=== PATIENT | female | born 1950 | race Caucasian/White ===

== ENCOUNTER 2017-11-06 09:10 | Day surgery (SDC) | payer MEDICARE, BC ==
[~2017-11-06 09:10] MED LIST: Dexamethasone 4 MG/ML 5 ML MDV ONE; Midazolam 1 MG/ML 2 ML SDV ONE; Ondansetron 4 MG/2 ML SDV ONE; Propofol 200 MG/20 ML SDV ONE; Rocuronium 10 MG/ML 10 ML Syringe ONE; Scopolamine 1.5 MG Transdermal Patch TRDERM PRN; diphenhydrAMINE 50 MG/ML SDV ONE; fentaNYL 250 MCG/5 ML SDV ONE
[2017-11-06] MEDS ORDERED: Fluorescein 5 ML Vial ONE (09:34)
--- NOTE | 2017-11-06 10:10 | PCM.PREANE ---
Preanesthetic Assessment - Anesthesia/Transfusion/Family Hx Anesthesia History: Prior Anesthesia Without Reaction Family History of Anesthesia Reaction: No Transfusion History: No Prior Transfusion(s) Intubation History: Unknown - Review of Systems General: No Symptoms Pulmonary: No Symptoms Cardiovascular: No Symptoms Gastrointestinal: No Symptoms Neurological: No Symptoms Other: Reports: None - Physical Assessment O2 Sat by Pulse Oximetry: 95 Respiratory Rate: 16 Vital Signs: Last Vital Signs Temp 36.4 C 11/06/17 09:30 Pulse 80 11/06/17 09:30 Resp 16 11/06/17 09:30 BP 167/82 H 11/06/17 09:30 Pulse Ox 95 11/06/17 09:30 Height: 1.65 m Weight: 93.894 kg ASA Class: 2 Mental Status: Alert & Oriented x3 Airway Class: Mallampati = 2 Dentition: Reports: Normal Dentition Thyro-Mental Finger Breadths: 2 Mouth Opening Finger Breadths: 3 ROM/Head Extension: Full Lungs: Clear to Auscultation, Normal Respiratory Effort Cardiovascular: Regular Rate, Regular Rhythm - Allergies Allergies/Adverse Reactions: Allergies Allergy/AdvReac Type Severity Reaction Status Date / Time No Known Allergies Allergy Verified 11/06/17 09:37 - Blood Blood Available: No - Anesthesia Plan Pre-Op Medication Ordered: None - Acknowledgements Anesthesia Type Planned: General Anesthesia Pt an Appropriate Candidate for the Planned Anesthesia: Yes Alternatives and Risks of Anesthesia Discussed w Pt/Guardian: Yes Pt/Guardian Understands and Agrees with Anesthesia Plan: Yes PreAnesthesia Questionnaire Other HEENT History: wears glasses Cardiovascular History: Reports: Hypertension Gastrointestinal History: Reports: Other (See Below) Other Gastrointestinal History: occasional heartburn- takes [employer] History: Reports: Ectopic Musculoskeletal History: Reports: Other (See Below) Other Musculoskeletal History: hx of spinal stenosis Neurological History: Reports: Other (See Below) Other Neuro History: hx of spinal stenosis Endocrine/Metabolic History: Reports: Obesity/BMI 30+ - Past Surgical History Head Surgeries/Procedures: Reports: None GI Surgical History: Reports: Cholecystectomy, Colonoscopy Female Surgical History: Reports: Other (See Below) Other Female Surgeries/Procedures: removal of Ectopic Neurological Surgical History: Reports: Spinal Fusion Other Neurological Surgeries/Procedures: L5-S1- has rods in back Musculoskeletal Surgical History: Reports: Other (See Below) Other Musculoskeletal Surgeries/Procedures:: spinal fision L5-S1 - has 2 rods in back - SUBSTANCE USE Smoking Status *Q: Never Smoker Recreational Drug Use History: No - HOME MEDS Home Medications: Home Meds Cholecalciferol (Vitamin D3) [Vitamin D3] 2,000 unit PO DAILY 11/02/17 [History] Hydrochlorothiazide 25 mg PO DAILY 11/02/17 [History] - CURRENT (IN HOUSE) MEDS Current Meds: Current Medications Scopolamine (Transderm-Scop) 1.5 mg TRDERM Q72H PRN PRN Reason: Nausea/Vomiting Last Admin: 11/06/17 10:03 Dose: 1.5 mg Discontinued Medications Dexamethasone (Dexamethasone) Confirm Administered Dose 20 mg .ROUTE .STK-MED ONE Stop: 11/06/17 09:05 Diphenhydramine HCl (Benadryl) Confirm Administered Dose 50 mg .ROUTE .STK-MED ONE Stop: 11/06/17 09:05 Fentanyl (Sublimaze) Confirm Administered Dose 250 mcg .ROUTE .STK-MED ONE Stop: 11/06/17 09:06 Fluorescein Sodium (Ak-Fluor) Confirm Administered Dose 5 ml .ROUTE .STK-MED ONE Stop: 11/06/17 09:35 Midazolam HCl (Versed 1 Mg/Ml) Confirm Administered Dose 2 mg .ROUTE .STK-MED ONE Stop: 11/06/17 09:06 Ondansetron HCl (Zofran) Confirm Administered Dose 4 mg .ROUTE .STK-MED ONE Stop: 11/06/17 09:05 Propofol (Diprivan 20 Ml) Confirm Administered Dose 200 mg .ROUTE .STK-MED ONE Stop: 11/06/17 09:06 Rocuronium [place] (Zemuron) Confirm Administered Dose 100 mg .ROUTE .STK-MED ONE Stop: 11/06/17 09:05
[2017-11-06] MEDS ORDERED: ceFAZolin 2 GM in Premix Bag 1 BAG IV ONE (10:29)
[2017-11-06] MEDS ORDERED: Furosemide 40 MG/4 ML VIAL ONE (11:37)
[2017-11-06] MEDS ORDERED: Mineral Oil/Petrolatum Ophth Oint 3.5 GM Tube ONE (11:37)
[2017-11-06] MEDS ORDERED: Glycopyrrolate 0.2 MG/ML SDV ONE (11:53)
[2017-11-06] MEDS ORDERED: fentaNYL 100 MCG/2 ML SDV ONE ×2 (12:32→13:13)
[2017-11-06] MEDS ORDERED: ePHEDrine 50 MG/ML SDV ONE (12:51)
[2017-11-06] MEDS ORDERED: Ketorolac 30 MG/ML SDV ONE (13:05)
[2017-11-06] MEDS ORDERED: Acetaminophen/oxyCODONE 325-5 MG Tab PO PRN (14:07)
[2017-11-06] MEDS ORDERED: Ketorolac 30 MG/ML SDV IVPUSH ONE (14:07)
[2017-11-06] MEDS ORDERED: Morphine 2 MG/ML Syringe IVPUSH PRN (14:07)
[2017-11-06] MEDS ORDERED: Promethazine 25 MG/ML SDV IM PRN (14:07)
[2017-11-06] MEDS ORDERED: Ondansetron 4 MG/2 ML SDV IVPUSH PRN (14:07)
[2017-11-06] MEDS ORDERED: Morphine 4 MG/ML Syringe IVPUSH PRN (14:07)
--- NOTE | 2017-11-06 14:07 | PCM.OPNOTE ---
- General Post-Op/Procedure Note Date of Surgery/Procedure: 11/06/17 Operative Procedure(s): TVH, anterior and posterior repair, vaginal vault suspension, cystoscopy Findings: 4th degree cystocele, 3rd degree uterine prolapse, 3rd degree enterocele, 3rd degree rectocele, on cystoscopy, no evidence of trauma to the bladder mucosa, copious flow of bright green urine from bilateral ureteral orifices. Pre Op Diagnosis: incomplete uterovaginal prolapse Post-Op Diagnosis: Same Anesthesia Technique: General ET Tube Primary Surgeon: Charlene Bush Secondary Surgeon: Amena Jansen Pathology: uterus, vaginal mucosa Fluid Replacement, Intraop: 2,300 Output, Urine Amount: 300 EBL in mLs: 200 Complications: None Known Condition: Good
--- NOTE | 2017-11-06 16:41 | PCM48HPAN ---
Post Anesthesia Note - EVALUATION WITHIN 48HRS OF ANESTHETIC Vital Signs in Normal Range: Yes Patient Participated in Evaluation: Yes Respiratory Function Stable: Yes Airway Patent: Yes Cardiovascular Function Stable: Yes Hydration Status Stable: Yes Pain Control Satisfactory: Yes Nausea and Vomiting Control Satisfactory: Yes Mental Status Recovered: Yes Resp Rate: 13
[2017-11-06] MEDS: Ketorolac 30 MG/ML SDV IVPUSH SCH ×2 (16:54→20:29)
--- NOTE | 2017-11-06 20:14 | OR ---
SURGEON: Charlene Bush M.D. DATE OF PROCEDURE: 11/06/2017 PREOPERATIVE DIAGNOSIS: Incomplete uterovaginal prolapse. POSTOPERATIVE DIAGNOSIS: Incomplete uterovaginal prolapse. PROCEDURE PERFORMED: Total vaginal hysterectomy with anterior and posterior colporrhaphy, vaginal vault suspension to the uterosacral ligaments, and cystoscopy. ANESTHESIA: General endotracheal. FLUIDS: 2300 mL crystalloid. ESTIMATED BLOOD LOSS: 200 mL. URINE OUTPUT: 300 mL. FINDINGS: Fourth degree cystocele, third to fourth degree uterine prolapse, third-degree rectocele with enterocele, and on cystoscopy there was no evidence of any trauma to the bladder mucosa. There was copious flow of bright green urine from bilateral ureteral orifices. COMPLICATIONS: None known. DISPOSITION: Stable to recovery. BRIEF HISTORY: This is a 67-year-old female, who presents with an incomplete uterovaginal prolapse. She was counseled regarding options. This prolapse is fairly severe, it is not yet complete procidentia but it is a grade 3 with a grade 4 cystocele, and I offered option of pessary, expectant management, physical therapy, or proceeding with surgical intervention. She desires to proceed with surgical intervention. She was therefore consented for a total vaginal hysterectomy with anterior and posterior colporrhaphy, vaginal vault suspension, and cystoscopy with risks including bleeding, infection, injury to bowel, bladder, blood vessels, ureters, or other organs, risk of thromboembolic event, risk of anesthesia, risk of recurrence of 30%, risk of dyspareunia, and risk of new onset stress incontinence. Understanding all these risks, she does desire to proceed. DESCRIPTION OF PROCEDURE: With the patient in dorsal lithotomy position, under adequate general endotracheal anesthesia, the abdomen was prepped with chlorhexidine. The perineum and vagina were prepped with Betadine and draped in usual fashion for vaginal surgery. SCDs were in place. Austin catheter had been placed. An appropriate time-out was held. Findings were as noted above. A weighted speculum was placed posteriorly. Right-angled retractor was placed anteriorly. The cervix was grasped with a Cathryn tenaculum and the vaginal mucosa was circumscribed immediately adjacent to the cervix. The posterior cul-de-sac was entered sharply. A Marek Auvard speculum was placed posteriorly. The anterior cul-de-sac was entered sharply, and a finger was placed feeling the smooth serosal surface of the uterus. The right angle retractor was placed anteriorly. The uterosacral ligaments were then cross clamped, cut, and ligated using a Dion ligature of 2-0 Polysorb. Two additional pedicles were taken on the right and the left, followed by the pedicle for the utero-ovarian ligament, which was clamped, cut, and ligated using a Dion ligature of 2-0 Polysorb. The uterus was then delivered via the vagina. The pedicles were inspected. There was a small area of bleeding on both the right and the left that was grasped with a Dion clamp and ligated using a Dion ligature of 2-0 Polysorb. This being completed, hydrodissection was performed for the anterior vagina. The vaginal cuff anteriorly was grasped with Allis clamps and the vaginal mucosa was undermined using Metzenbaum scissors, incised in the midline. The muscularis layer was then dissected free and reapproximated in the midline using a running mattress suture of 0 Polysorb. The vaginal mucosa was trimmed and closed with a running locked suture of 0 Polysorb to the level of the vaginal cuff. This suture was then retained and attention was then placed posteriorly. The Marek Auvard speculum was removed. Anali clamps were placed on the uterosacral ligaments. With tension, the bilateral uterosacral ligaments were identified and palpated and three sutures of Tycron were placed, starting lateral to medially on the right and the left, retracting the bowel out of the way. These were tied with a single tie. Once these were placed, cystoscopy was performed after IV fluorescein had been given. There was copious flow of green urine from bilateral ureteral orifices. There was also no evidence of any trauma to the bladder mucosa. Therefore, the cystoscope was removed. The bladder was further drained and the catheter was reattached. A small triangular incision was made in the perineum with a 15 blade scalpel and undermined and incised. Hydrodissection was then performed over the posterior vagina which was incised in the midline, undermined with Metzenbaum scissors to the vaginal cuff and the muscularis layer was dissected free from the overlying vaginal mucosa. Approximately, the upper half of the vagina contained a posterior enterocele. Once the dissection was completed, the posterior enterocele was closed with a pursestring suture, and the muscularis layer was reapproximated using multiple interrupted mattress sutures of 2-0 Polysorb. This being completed, the retained Tycron sutures were placed posteriorly, placing the most cephalad suture laterally. Six sutures were placed across the vaginal cuff posteriorly incorporating the muscularis layer and the other arm of each of the six was placed anteriorly. This being completed, the sutures were then tied with excellent elevation of the vaginal cuff. The vaginal cuff was then further closed using the retained 0 Polysorb that had been used to close the anterior repair and I did minimal trimming of the posterior vaginal mucosa as from a width standpoint, there was minimal to trim. There was redundant vagina from caudad to cephalad aspect but this was unable to be trimmed. When I reached the perineal area, I continued with the running suture of 0 Polysorb for the deep tissue but then changed to 4-0 Caprosyn for the more superficial perineal tissue and a subcuticular suture of the same for the skin. Final sponge, needle, and instrument counts were reported as correct. There were no known complications. The vagina was packed and the Austin catheter was left in place. The patient was transferred to recovery in good condition. TK CABRAL /[id number]
[2017-11-07] MEDS: Ketorolac 30 MG/ML SDV IVPUSH SCH ×3 (02:48→15:32)
[2017-11-07 06:11] LABS: CHLORIDE,CL 102 mmol/L (98-110); SODIUM,NA 135 mmol/L (136-146)
[2017-11-07] MEDS: Hydrochlorothiazide 25 MG Tab PO SCH ×2 (08:13→08:16)
--- NOTE | 2017-11-07 09:08 | PCM.SURGPN ---
- General Info Date of Service: 11/07/17 POD#: 1 Post-Op Diagnosis: incomplete uterovaginal prolapse Functional Status: Reports: Pain Controlled, Tolerating Diet, Ambulating. Denies: Urinating (catheter still in place, vaginal packing removed minimal discharge) - Review of Systems General: Reports: No Symptoms HEENT: Reports: No Symptoms Pulmonary: Reports: No Symptoms Cardiovascular: Reports: No Symptoms Gastrointestinal: Reports: No Symptoms Genitourinary: Reports: No Symptoms Musculoskeletal: Reports: No Symptoms Skin: Reports: No Symptoms Neurological: Reports: No Symptoms Psychiatric: Reports: No Symptoms - Patient Data Vitals - Most Recent: Last Vital Signs Temp 37.3 C 11/07/17 04:00 Pulse 80 11/07/17 08:24 Resp 18 11/07/17 04:00 BP 97/47 L 11/07/17 08:24 Pulse Ox 96 11/07/17 04:00 Weight - Most Recent: 93.894 kg I&O - Last 24 Hours: Intake & Output 11/06/17 11/07/17 11/07/17 22:59 06:59 14:59 Intake Total 2750 700 Output Total 600 475 Balance 2150 225 Lab Results Last 24 Hrs: Laboratory Results - last 24 hr 11/06/17 11/07/17 11/07/17 Range/Units 09:46 05:29 05:29 WBC 8.69 (4.0-11.0) K/uL RBC 4.06 L (4.30-5.90) M/uL Hgb 12.4 (12.0-16.0) g/dL Hct 37.4 (36.0-46.0) % MCV 92.1 (80.0-98.0) fL MCH 30.5 (27.0-32.0) pg MCHC 33.2 (31.0-37.0) g/dL RDW Std Deviation 43.4 (28.0-62.0) fl RDW Coeff of Toña 13 (11.0-15.0) % Plt Count 191 (150-400) K/uL MPV 10.00 (7.40-12.00) fL Neut % (Auto) 75.4 (48.0-80.0) % Lymph % (Auto) 13.6 L (16.0-40.0) % [place] % (Auto) 10.7 (0.0-15.0) % Eos % (Auto) 0.2 (0.0-7.0) % Baso % (Auto) 0.1 (0.0-1.5) % Neut # (Auto) 6.6 H (1.4-5.7) K/uL Lymph # (Auto) 1.2 (0.6-2.4) K/uL [place] # (Auto) 0.9 H (0.0-0.8) K/uL Eos # (Auto) 0.0 (0.0-0.7) K/uL Baso # (Auto) 0.0 (0.0-0.1) K/uL Nucleated RBC % 0.0 /100WBC Nucleated RBCs # 0 K/uL Sodium 135 L (136-146) mmol/L Potassium 4.4 (3.5-5.1) mmol/L Chloride 102 (98-110) mmol/L Carbon Dioxide 25 (21-31) mmol/L BUN 11 (6.0-23.0) mg/dL Creatinine 0.8 (0.6-1.5) mg/dL Est Cr Clr Drug Dosing 60.56 mL/min Estimated GFR (MDRD) > 60.0 ml/min Glucose 160 H (60-110) mg/dL Calcium 8.4 L (8.8-10.8) mg/dL Blood Type A POSITIVE Antibody Screen NEGATIVE Med Orders - Current: Current Medications Hydrochlorothiazide (Hydrochlorothiazide) 25 mg PO DAILY [facility] Last Admin: 11/07/17 08:16 Dose: Not Given Ketorolac Tromethamine (Toradol) 15 mg IVPUSH Q6H [facility] Stop: 11/11/17 14:07 Last Admin: 11/07/17 08:13 Dose: 15 mg Morphine Sulfate (Morphine) 2 mg IVPUSH Q2H PRN PRN Reason: Pain (severe 7-10) Morphine Sulfate (Morphine) 4 mg IVPUSH Q2H PRN PRN Reason: Pain (severe 7-10) Last Admin: 11/06/17 16:54 Dose: 4 mg Ondansetron HCl (Zofran) 4 mg IVPUSH Q6H PRN PRN Reason: Nausea/Vomiting Oxycodone/Acetaminophen (Percocet 325-5 Mg) 1 tab PO Q4H PRN PRN Reason: Pain (moderate 4-6) Oxycodone/Acetaminophen (Percocet 325-5 Mg) 2 tab PO Q4H PRN PRN Reason: Pain (moderate 4-6) Last Admin: 11/06/17 15:59 Dose: 2 tab Promethazine HCl (Phenergan) 25 mg IM Q6H PRN PRN Reason: Nausea/Vomiting Scopolamine (Transderm-Scop) 1.5 mg TRDERM Q72H PRN PRN Reason: Nausea/Vomiting Last Admin: 11/06/17 10:03 Dose: 1.5 mg Discontinued Medications Dexamethasone (Dexamethasone) Confirm Administered Dose 20 mg .ROUTE .STK-MED ONE Stop: 11/06/17 09:05 Diphenhydramine HCl (Benadryl) Confirm Administered Dose 50 mg .ROUTE .STK-MED ONE Stop: 11/06/17 09:05 Ephedrine Sulfate (Ephedrine Sulfate) Confirm Administered Dose 50 mg .ROUTE .STK-MED ONE Stop: 11/06/17 12:52 Fentanyl (Sublimaze) Confirm Administered Dose 250 mcg .ROUTE .STK-MED ONE Stop: 11/06/17 09:06 Fentanyl (Sublimaze) Confirm Administered Dose 100 mcg .ROUTE .STK-MED ONE Stop: 11/06/17 12:33 Fentanyl (Sublimaze) Confirm Administered Dose 100 mcg .ROUTE .STK-MED ONE Stop: 11/06/17 13:14 Fluorescein Sodium (Ak-Fluor) Confirm Administered Dose 5 ml .ROUTE .STK-MED ONE Stop: 11/06/17 09:35 Furosemide (Lasix) Confirm Administered Dose 40 mg .ROUTE .STK-MED ONE Stop: 11/06/17 11:38 Glycopyrrolate (Robinul) Confirm Administered Dose 0.2 mg .ROUTE .STK-MED ONE Stop: 11/06/17 11:54 Cefazolin Sodium/Dextrose 2 gm (/ Premix) 50 mls @ 100 mls/hr IV ONETIME ONE Stop: 11/06/17 10:58 Last Admin: 11/06/17 16:36 Dose: Not Given Acetaminophen (Ofirmev) Confirm Administered Dose 100 mls @ as directed IV .STK- MED ONE Stop: 11/06/17 12:00 Ketorolac Tromethamine (Toradol) Confirm Administered Dose 30 mg .ROUTE .STK- MED ONE Stop: 11/06/17 13:06 Ketorolac Tromethamine (Toradol) 30 mg IVPUSH ONETIME ONE Stop: 11/06/17 14:08 Last Admin: 11/06/17 16:37 Dose: Not Given Midazolam HCl (Versed 1 Mg/Ml) Confirm Administered Dose 2 mg .ROUTE .STK-MED ONE Stop: 11/06/17 09:06 Mineral Oil/White Petrolatum (Lacri-Lube S.O.P Oint) Confirm Administered Dose 3.5 gm .ROUTE .STK-MED ONE Stop: 11/06/17 11:38 Ondansetron HCl (Zofran) Confirm Administered Dose 4 mg .ROUTE .STK-MED ONE Stop: 11/06/17 09:05 Propofol (Diprivan 20 Ml) Confirm Administered Dose 200 mg .ROUTE .STK-MED ONE Stop: 11/06/17 09:06 Rocuronium [place] (Zemuron) Confirm Administered Dose 100 mg .ROUTE .STK-MED ONE Stop: 11/06/17 09:05 - Exam General: Alert, Oriented HEENT: Pupils Equal Neck: Supple Lungs: Clear to Auscultation, Normal Respiratory Effort Cardiovascular: Regular Rate, Regular Rhythm GI/Abdominal Exam: Normal Bowel Sounds, Soft, Non-Tender, No Organomegaly, No Distention, No Abnormal Bruit, No Mass Extremities: Normal Inspection, Non-Tender, No Pedal Edema Skin: Warm, Dry, Intact Neurological: No New Focal Deficit Psy/Mental Status: Alert, Normal Affect, Normal Mood - Problem List & Annotations (1) Incomplete uterine prolapse SNOMED Code(s): 452507396 Code(s): N81.2 - INCOMPLETE UTEROVAGINAL PROLAPSE Status: Acute Current Visit: Yes - Problem List Review Problem List Initiated/Reviewed/Updated: Yes - My Orders Last 24 Hours: Active Orders 24 hr Category Date Time Status Patient Status [ADT] Routine ADT 11/06/17 14:07 Active Antiembolic Devices [RC] PER UNIT ROUTINE Care 11/06/17 14:07 Active Notify Provider Intake and Out [RC] ASDIRECTED Care 11/06/17 14:07 Active Notify Provider Vital Signs [RC] ASDIRECTED Care 11/06/17 14:07 Active RT Incentive Spirometry [RC] Q2HWA Care 11/06/17 14:07 Active Ready for Discharge [RC] PER UNIT ROUTINE Care 11/07/17 08:33 Active Up With Assistance [RC] PER UNIT ROUTINE Care 11/06/17 14:07 Active Up ad Lorrie [RC] PER UNIT ROUTINE Care 11/06/17 14:07 Active Urinary Catheter Removal [RC] Per Unit Routine Care 11/06/17 14:07 Active Vital Signs [RC] PER UNIT ROUTINE Care 11/06/17 14:07 Active Regular Diet [DIET] Diet 11/07/17 Breakfast Active Acetaminophen/oxyCODONE [Percocet 325-5 MG] Med 11/06/17 14:07 Active 1 tab PO Q4H PRN Acetaminophen/oxyCODONE [Percocet 325-5 MG] Med 11/06/17 14:07 Active 2 tab PO Q4H PRN Hydrochlorothiazide Med 11/07/17 09:00 Active 25 mg PO DAILY Ketorolac [Toradol] Med 11/06/17 14:15 Active 15 mg IVPUSH Q6H Morphine Med 11/06/17 14:07 Active 2 mg IVPUSH Q2H PRN Morphine Med 11/06/17 14:07 Active 4 mg IVPUSH Q2H PRN Ondansetron [Zofran] Med 11/06/17 14:07 Active 4 mg IVPUSH Q6H PRN Promethazine [Phenergan] Med 11/06/17 14:07 Active 25 mg IM Q6H PRN Scopolamine [Transderm-Scop] Med 11/06/17 08:14 Active 1.5 mg TRDERM Q72H PRN Peripheral IV Discontinue [OM.PC] Routine Oth 11/06/17 14:07 Ordered Sequential Compression Device [OM.PC] Per Unit Routine Oth 11/06/17 14:07 Ordered Resuscitation Status Routine Resus Stat 11/06/17 14:07 Ordered Medication Orders Hydrochlorothiazide (Hydrochlorothiazide) 25 mg PO DAILY [facility] Last Admin: 11/07/17 08:16 Dose: Ketorolac Tromethamine (Toradol) 15 mg IVPUSH Q6H [facility] Stop: 11/11/17 14:07 Last Admin: 11/07/17 08:13 Dose: 15 mg Admin: 11/07/17 02:48 Dose: 15 mg Admin: 11/06/17 20:29 Dose: 15 mg Admin: 11/06/17 16:54 Dose: Morphine Sulfate (Morphine) 2 mg IVPUSH Q2H PRN PRN Reason: Pain (severe 7-10) Morphine Sulfate (Morphine) 4 mg IVPUSH Q2H PRN PRN Reason: Pain (severe 7-10) Last Admin: 11/06/17 16:54 Dose: 4 mg Ondansetron HCl (Zofran) 4 mg IVPUSH Q6H PRN PRN Reason: Nausea/Vomiting Oxycodone/Acetaminophen (Percocet 325-5 Mg) 1 tab PO Q4H PRN PRN Reason: Pain (moderate 4-6) Oxycodone/Acetaminophen (Percocet 325-5 Mg) 2 tab PO Q4H PRN PRN Reason: Pain (moderate 4-6) Last Admin: 11/06/17 15:59 Dose: 2 tab Promethazine HCl (Phenergan) 25 mg IM Q6H PRN PRN Reason: Nausea/Vomiting Scopolamine (Transderm-Scop) 1.5 mg TRDERM Q72H PRN PRN Reason: Nausea/Vomiting Last Admin: 11/06/17 10:03 Dose: 1.5 mg - Assessment Assessment (Free Text/Narrative):: PPD#1 after , stable, minimal lochia, tolerating diet. Vaginal packing removed, minimal discharge. - Plan Plan (Free Text/Narrative):: Dismiss to home, follow up in 2 and 6 weeks, discharge instructions reviewed. Must void prior to discharge.
[2017-11-07] MEDS ORDERED: Midazolam 1 MG/ML 2 ML SDV ONE (09:19)
[2017-11-07] MEDS ORDERED: fentaNYL 100 MCG/2 ML SDV ONE (09:19)
[2017-11-07] MEDS ORDERED: Ondansetron 4 MG/2 ML SDV ONE (09:19)
[2017-11-07] MEDS ORDERED: Glycopyrrolate 0.2 MG/ML SDV ONE (09:19)
[2017-11-07] MEDS ORDERED: Lidocaine 2% 5 ML SDV ONE (09:19)
[2017-11-07] MEDS ORDERED: Neostigmine Methylsulfate 1 MG/ML 5 ML Syringe ONE (09:19)
[2017-11-07] MEDS ORDERED: Rocuronium 10 MG/ML 10 ML Syringe ONE (09:19)
[2017-11-07] MEDS ORDERED: Propofol 200 MG/20 ML SDV ONE (09:19)
[2017-11-07] MEDS: Acetaminophen/oxyCODONE 325-5 MG Tab PO PRN ×2 (12:47→17:12)
== END 2017-11-07 17:00 | disposition home or self-care (01) ==
LOC: MW.SDS 09:10 → MW.MS 15:47 → MW.SDS 11-07 17:00
PROVIDERS: ATTEND Obstetrics & Gynecology
DX: N85.8 Other specified noninflammatory disorders of uterus (principal); N81.3 Complete uterovaginal prolapse; I10 Essential (primary) hypertension; E66.9 Obesity, unspecified; Z68.30 Body mass index [BMI] 30.0-30.9, adult; Z79.899 Other long term (current) drug therapy
CPT/HCPCS: 36415; 57280; 58260; 80048; 85025; 86850; 86900; 86901; A9270; J1100; J1200; J1885; J1940; J2250; J2270; J2405; J3010; 00944; 88307; J2704